=== PATIENT | female | born 1985 | race African-American/Black ===

== ENCOUNTER 2019-09-06 13:37 | Emergency (ER) | payer MEDICAID, OTHER ==
[~2019-09-06] VITALS: Ht 149.9 cm; Wt 67.0 kg
[2019-09-06] MEDS ORDERED: KETOROLAC 60MG/2ML VIAL IM ONE (14:45)
[2019-09-06 16:04] VITALS: BP 110/60
== END 2019-09-06 16:09 | disposition home or self-care (01) ==
LOC: ER 13:37
DX: S93.402A Sprain of unspecified ligament of left ankle, initial encounter (principal); S93.602A Unspecified sprain of left foot, initial encounter; J45.909 Unspecified asthma, uncomplicated; Z88.0 Allergy status to penicillin; Z88.1 Allergy status to other antibiotic agents; X58.XXXA Exposure to other specified factors, initial encounter; Y93.89 Activity, other specified; Y92.89 Other specified places as the place of occurrence of the external cause; Y99.8 Other external cause status
CPT/HCPCS: 73610; 73630; 96372; 99284; J1885; Z7610